=== PATIENT | female | born 1995 | race Caucasian/White ===

== ENCOUNTER 2020-02-17 11:29 | Emergency (ER) | payer SELFPAY ==
--- NOTE | 2020-02-17 13:41 | ER Document Report ---
ED Medical Screen (RME) - General Chief Complaint: Vaginal Bleeding Stated Complaint: VAGINAL BLEEDING Time Seen by Provider: 02/17/20 13:36 Primary Care Provider: SYDNIE ROSS MD [Primary Care Provider] - Follow up as needed - [facility] Notes: 02/17/20 13:40 24-year-old female, G1, P1, to the emergency department with complaints of dark brown vaginal bleeding for the past 3 days and 5+ at home test. Her last menstrual period was January 12. She states that she has had a little bit of lower abdominal cramping yesterday. She states that the bleeding seems to be a little bit heavier today. She denies any fevers or chills. She denies any nausea, vomiting, diarrhea. I performed a brief medical screening exam on the patient determined that the patient needs further evaluation and management by main side provider. I have placed initial orders to help expedite care. - Related Data Allergies/Adverse Reactions: morphine Allergy (Verified 02/17/20 13:36) Physical Exam - Vital signs Vitals: Temp Pulse Resp BP Pulse Ox 98.1 F 78 20 121/77 98 02/17/20 11:48 02/17/20 11:48 02/17/20 11:48 02/17/20 11:48 02/17/20 11:48 Course - Vital Signs Vital signs: Temp Pulse Resp BP Pulse Ox 98.1 F 78 20 121/77 98 02/17/20 11:48 02/17/20 11:48 02/17/20 11:48 02/17/20 11:48 02/17/20 11:48 Doctor's Discharge - Discharge Referrals: SYDNIE ROSS MD [Primary Care Provider] - Follow up as needed
--- NOTE | 2020-02-17 14:49 | RADIOLOGY REPORT (SQ) ---
EXAM DESCRIPTION: U/S OB TRANSVAG W/DOPPLER IMAGES COMPLETED DATE/TIME: 02/17/2020 2:40 pm REASON FOR STUDY: vaginal bleeding, positive home COMPARISON: None. TECHNIQUE: Transvaginal static and realtime grayscale images acquired of the pelvis. Additional randy cted spectral and color Doppler images recorded. All images stored on PACs. CLINICAL AGE: 5 week 0 days. BHCG: Pending. LIMITATIONS: None. FINDINGS: UTERUS: No visualized intrauterine . RIGHT ADNEXA: Normal ovary with normal vascular flow. No adnexal free fluid. No adnexal masses. LEFT ADNEXA: Normal ovary with normal vascular flow. No adnexal free fluid. No adnexal masses. FREE FLUID: None. OTHER: No other significant finding. IMPRESSION: NO VISUALIZED INTRA- OR EXTRAUTERINE . bHCG LEVEL NOT AVAILABLE FOR CORRELATION WITH US FINDINGS. ECTOPIC CANNOT BE EXCLUDED. FOLLOW-UP ULTRASOUND AND SERIAL BHCG LEVELS STRONGLY RECOMMENDED TO ACCURATELY ASSESS STATU S. TECHNICAL DOCUMENTATION: JOB ID: [id number] 2010 [employer]- All Rights Reserved Reading location - IP/workstation name: [email or web address]
[2020-02-17 15:06] LABS: ABSOLUTE EOSINOPHILS # (AUTO) 0.1 10^3/uL (0.0-0.6); ABSOLUTE LYMPHOCYTES (AUTO) 2.7 10^3/uL (0.5-4.7); ABSOLUTE MONOCYTES (AUTO) 0.5 10^3/uL (0.1-1.4); ABSOLUTE NEUT (AUTO) 7.1 10^3/uL (1.7-8.2); BASOPHILS % (AUTO) 0.3 % (0-2); EOSINOPHILS % (AUTO) 1.2 % (0-6); HEMOGLOBIN 14.7 g/dL (12.0-15.5); LYMPHOCYTES % (AUTO) 26.3 % (13-45); MEAN CORPUSCULAR HEMOGLOBIN 30.1 pg (27.0-33.4); MEAN CORPUSCULAR HGB CONC 35.1 g/dL (32.0-36.0); MEAN CORPUSCULAR VOLUME 86 fl (80-97); MONOCYTES % (AUTO) 4.7 % (3-13); PLATELET COUNT 293 10^3/uL (150-450); RED CELL DISTRIBUTION WIDTH 13.5 % (11.5-14.0); SEGMENTED NEUTROPHILS % (AUTO) 67.5 % (42-78); TOTAL CELLS COUNTED % (AUTO) 100 %; WHITE BLOOD COUNT 10.4 10^3/uL (4.0-10.5)
[2020-02-17 15:21] LABS: ANION GAP 12 (5-19); BLOOD UREA NITROGEN 11 mg/dL (7-20); CALCIUM 9.7 mg/dL (8.4-10.2); CARBON DIOXIDE 25 mmol/L (22-30); CHLORIDE 103 mmol/L (98-107); GLUCOSE 92 mg/dL (75-110); POTASSIUM 4.5 mmol/L (3.6-5.0)
--- NOTE | 2020-02-17 19:08 | ER Document Report ---
ED General - General Chief Complaint: Vaginal Bleeding Stated Complaint: VAGINAL BLEEDING Time Seen by Provider: 02/17/20 13:36 Primary Care Provider: ILIR TAPIA MD [ACTIVE STAFF] - Follow up in 1 week (for obgyn follow up) - HPI Notes: 24-year-old female to the emergency department with complaints of vaginal bleeding for the past 3 days and 5+ test at home. She states that her last menstrual period was approximately 6 weeks ago. She denies any fevers or chills. She denies any nausea or vomiting. She states she had some mild abdominal cramping. Denies any flank pain. Denies any urinary complaints. Denies any chest pain, shortness of breath, lightheadedness. - Related Data Allergies/Adverse Reactions: morphine Allergy (Verified 02/17/20 13:36) Past Medical History - General Information source: Patient - Social History Smoking Status: Current Every Day Smoker Frequency of alcohol use: Occasional Drug Abuse: None Family History: Reviewed & Not Pertinent Review of Systems - Review of Systems Constitutional: Chills, Fever EENT: No symptoms reported Cardiovascular: denies: Chest pain, Palpitations, Dizziness, Lightheaded Respiratory: denies: Cough, Short of breath - In the back Gastrointestinal: denies: Abdominal pain, Diarrhea, Nausea, Vomiting Genitourinary: denies: Frequency, Flank pain, Hematuria Female Genitourinary: See HPI - See HPI, Vaginal bleeding Musculoskeletal: No symptoms reported Skin: No symptoms reported Hematologic/Lymphatic: No symptoms reported Neurological/Psychological: No symptoms reported -: Yes All other systems reviewed and negative Physical Exam - Vital signs Vitals: Temp Pulse Resp BP Pulse Ox 98.1 F 78 20 121/77 98 02/17/20 11:48 02/17/20 11:48 02/17/20 11:48 02/17/20 11:48 02/17/20 11:48 Interpretation: Normal - General General appearance: Appears well, Alert In distress: None - HEENT Head: Normocephalic, Atraumatic Eyes: Normal Pupils: PERRL - Respiratory Respiratory status: No respiratory distress Chest status: Nontender Breath sounds: Normal. No: Rales, Rhonchi, Wheezing Chest palpation: Normal - Abdominal Inspection: Normal Distension: No distension Bowel sounds: Normal Tenderness: Nontender. No: Tender, McBurney's point, Munguia's sign, Guarding, Rebound Organomegaly: No organomegaly - Back Back: Normal, Nontender. No: CVA tenderness - Neurological Neuro grossly intact: Yes Cognition: Normal Orientation: AAOx4 [place] Coma Scale Eye Opening: Spontaneous [place] Coma Scale Verbal: Oriented [place] Coma Scale Motor: Obeys Commands [place] Coma Scale Total: 15 Speech: Normal Cranial nerves: Normal Cerebellar coordination: Normal Motor strength normal: LUE, RUE, LLE, RLE Additional motor exam normals: Equal pediatric audiologist Sensory: Normal - Psychological Associated symptoms: Normal affect, Normal mood - Skin Skin Temperature: Warm Skin Moisture: Dry Skin Color: Normal Course - Re-evaluation Re-evalutation: 02/17/20 Impression: Vaginal bleeding and negative here in the emergency department. Beta quant is less than 2 and ultrasound is negative for any acute abnormalities. H&H is stable. Offered patient a pelvic exam and she is de clined. She would like to be discharged home. We will send her for follow-up outpatient with [employer] [employer]. Patient agrees with the plan - Vital Signs Vital signs: Temp Pulse Resp BP Pulse Ox 98.2 F 76 18 120/77 98 02/17/20 19:17 02/17/20 19:17 02/17/20 19:17 02/17/20 19:17 02/17/20 19:17 - Laboratory Result Diagrams: 02/17/20 14:40 02/17/20 14:40 - Diagnostic Test Radiology reviewed: Image reviewed, Reports reviewed Discharge - Discharge Clinical Impression: Vaginal bleeding, Negative test Condition: Stable Disposition: HOME, SELF-CARE Instructions: Vaginal Bleeding ([facility]) Additional Instructions: Follow-up with [employer] [employer] listed. He had a negative test today. Your ultrasound was reassuring. Your blood work was very reassuring. Return if any worsening symptoms. Referrals: ILIR TAPIA MD [ACTIVE STAFF] - Follow up in 1 week (for obgyn follow up)
[2020-02-17 19:18] VITALS: BP 120/77
== END 2020-02-17 19:17 | disposition home or self-care (01) ==
LOC: ER 11:29
DX: N93.9 Abnormal uterine and vaginal bleeding, unspecified (principal); Z32.02 Encounter for pregnancy test, result negative; R10.9 Unspecified abdominal pain; R50.9 Fever, unspecified; F17.200 Nicotine dependence, unspecified, uncomplicated; Z88.6 Allergy status to analgesic agent; Z88.5 Allergy status to narcotic agent
CPT/HCPCS: 36415; 76817; 80048; 84702; 85025; 86900; 86901; 93976; 99284